=== PATIENT | female | born 1960 | race Caucasian/White ===

== ENCOUNTER 2018-08-29 09:53 | Outpatient (CLI) | payer BC ==
[~2018-08-29] VITALS: Ht 157.5 cm; Wt 66.7 kg
[2018-08-29 10:05] VITALS: BP 135/70
[2018-08-29 10:50] LABS: BASOPHILS % (AUTO) 0 % (0-10); EOSINOPHILS # (AUTO) 0.1 10^3/uL (0.0-0.3); EOSINOPHILS % (AUTO) 2 % (0-10); HEMATOCRIT 43 % (35-52); HEMOGLOBIN 14.9 G/DL (11.5-16.0); LYMPHOCYTES # (AUTO) 1.1 X 10^3 (1.0-4.0); LYMPHOCYTES % (AUTO) 20 % (12-44); MEAN CORPUSCULAR HEMOGLOBIN 31 PG (25-34); MEAN CORPUSCULAR HGB CONC 34 G/DL (32-36); MEAN CORPUSCULAR VOLUME 90 FL (80-99); MONOCYTES # (AUTO) 0.5 X 10^3 (0.0-1.0); MONOCYTES % (AUTO) 8 % (0-12); NEUTROPHILS # (AUTO) 3.8 X 10^3 (1.8-7.8); NEUTROPHILS % (AUTO) 69 % (42-75); PLATELET COUNT 291 10^3/uL (130-400); RED CELL DISTRIBUTION WIDTH 12.3 % (10.0-14.5); WHITE BLOOD COUNT 5.5 10^3/uL (4.3-11.0)
[2018-08-29] MEDS ORDERED: GLUC1CAP37 PO (10:56)
[2018-08-29] MEDS ORDERED: [UNRECOGNIZED DRUG - OTHER] PO (10:56)
[2018-08-29] MEDS ORDERED: MUSCLE RELAX PO (10:56)
[2018-08-29] MEDS ORDERED: PROG100C6 PO (10:56)
[2018-08-29] MEDS ORDERED: CYAN500T2 PO (10:56)
[2018-08-29] MEDS ORDERED: FLUT9.9S NS (10:56)
[2018-08-29] MEDS ORDERED: RT-ALBUINH INH (10:56)
[2018-08-29] MEDS ORDERED: VALE530C PO (10:56)
[2018-08-29] MEDS ORDERED: MONT10TA24 PO (10:56)
[2018-08-29] MEDS ORDERED: FEXO-46 PO (10:56)
[2018-08-29] MEDS ORDERED: CRAN250C2 PO (10:56)
[2018-08-29] MEDS ORDERED: BLACK SEED OIL PO (10:56)
[2018-08-29] MEDS ORDERED: HYAL1CAP PO (10:56)
[2018-08-29] MEDS ORDERED: VITA400C60 PO (10:56)
[2018-08-29] MEDS ORDERED: HAWT150C PO (10:56)
[2018-08-29] MEDS ORDERED: [UNRECOGNIZED DRUG - OTHER] PO (10:56)
[2018-08-29 10:58] LABS: BACTERIA,URINE TRACE /HPF; BILIRUBIN,URINE NEGATIVE (NEGATIVE); CLARITY,URINE CLEAR; COLOR,URINE YELLOW; GLUCOSE, URINE (UA) NEGATIVE (NEGATIVE); KETONES,URINE 2+ (NEGATIVE); LEUKOCYTE ESTERASE ,URINE 3+ (NEGATIVE); NITRITE,URINE NEGATIVE (NEGATIVE); PH,URINE 6 (5-9); PROTEIN,URINE NEGATIVE (NEGATIVE); UROBILINOGEN,URINE NORMAL (NORMAL)
== END 2018-08-29 10:30 | disposition home or self-care (01) ==
LOC: PREOP 09:53
PROVIDERS: ATTEND Obstetrics & Gynecology
DX: Z01.812 Encounter for preprocedural laboratory examination (principal); Z11.2 Encounter for screening for other bacterial diseases; N80.0 Endometriosis of uterus; D25.9 Leiomyoma of uterus, unspecified; R82.90 Unspecified abnormal findings in urine
CPT/HCPCS: 36415; 81000; 85025; 86850; 86900; 86901; 87081; 87088

== ENCOUNTER 2018-09-04 06:15 | Day surgery (SDC) | payer BC ==
[~2018-09-04] VITALS: Ht 157.5 cm; Wt 63.7 kg
[~2018-09-04 06:15] MED LIST: BLACK SEED OIL PO; CRAN250C2 PO; CYAN500T2 PO; FEXO-46 PO; FLUT9.9S NS; GLUC1CAP37 PO; HAWT150C PO; HYAL1CAP PO; MONT10TA24 PO; MUSCLE RELAX PO; PROG100C6 PO; RT-ALBUINH INH; VALE530C PO; VITA400C60 PO; [UNRECOGNIZED DRUG - OTHER] PO; [UNRECOGNIZED DRUG - OTHER] PO
[2018-09-04 06:20] VITALS: BP 129/77
[2018-09-04] MEDS ORDERED: metroNIDAZOLE 500MG/100ML IVPB 100 ML IV ONE (06:30)
[2018-09-04] MEDS ORDERED: ceFAZolin INJECTION 1,000 MG in WATER (STERILE) FOR INJECTION 10 ML IV ONE (06:30)
[2018-09-04] MEDS ORDERED: fentaNYL INJECTION 250 MCG/5 ML AMP ONE (06:55)
[2018-09-04] MEDS ORDERED: MIDAZOLAM 2 MG/2 ML (VERSED) VIAL ONE (06:56)
[2018-09-04] MEDS: LACTATED RINGERS 1,000 ML IV PRN ×2 (07:07→08:20)
--- NOTE | 2018-09-04 07:13 | History & Physical-Surgical ---
HPO-Surgical History of Present Illness Chief Complaint: symptomatic uterine fibroids and adenomyosis Diagnosis/Surgical Indication: UTERINE FIBROIDS Procedure: RaTH, BSO, OIP Date of Surgery: Sep 04, 2018 Weight (Pounds): 140 Weight (Ounces): 6.0 Height (Feet): 5 Height (Inches): 2.00 Allergies and Home Medications Allergies Coded Allergies: No Known Drug Allergies (Unverified , 08/29/18) Home Medications Albuterol Sulfate 1 Puff Puff, 2 PUFF INH Q4H PRN for WHEEZING, (Reported) 1 PUFF = 90 MCG Cranberry Extract 250 Mg Capsule, 250 MG PO HS, (Reported) Cyanocobalamin (Vitamin B-12) 500 Mcg Tablet, 500 MCG PO HS, (Reported) Fexofenadine HCl 180 Mg Tablet, 180 MG PO HS, (Reported) Fluticasone Propionate 9.9 Ml [place].susp, 2 SPRAY NS DAILY, (Reported) Glucosa Pantoja 2Kcl/Chondroitin Pantoja 1 Each Capsule, 1 EACH PO HS, (Reported) [place] 150 Mg Capsule, 150 MG PO DAILY, (Reported) Hyalur AC/Chond Sul/Colg II/Aa 1 Each Capsule, 1 EACH PO HS, (Reported) Montelukast Sodium 10 Mg Tablet, 10 MG PO HS, (Reported) Progesterone,Micronized Unknown Strength Capsule, 150 MG PO HS, (Reported) Valerian Root 450 Mg Capsule, 450 MG PO HS, (Reported) Vitamin E Acetate 400 Unit Capsule, 400 UNIT PO HS, (Reported) [Black Seed Oil] , 500 MG PO HS, (Reported) [Counter Installer's Broom] , 470 MG PO HS, (Reported) [Cramp Bark] , 5,000 MG PO HS, (Reported) [Muscle Relax] , 2,600 MG PO HS, (Reported) Patient Home Medication List Home Medication List Reviewed: Yes Past Agskupp-Deamdc-Amurdz Hx Patient Social History Marrital Status: Number of Children: 0 Alcohol Use: Past History Recreational Drug Use: No Smoking Status: Never a Smoker Recent Foreign Travel: No Contact w/other who traveled: No Recent Infectious Disease Expo: No Immunizations Up To Date Date of Influenza Vaccine: Mar 19, 2018 Seasonal Allergies Seasonal Allergies: Yes Surgeries Yes (UD, sinus sx, DXLS, eye sx x5 for lazy eye) Respiratory Yes Cardiovascular Yes (murmur when younger) Neurological No Genitourinary No Gastrointestinal No Musculoskeletal Yes Arthritis Endocrine History of Endocrine Disorders: No HEENT History of HEENT Disorders: No Cancer No Psychosocial History of Psychiatric Problem: No Integumentary History of Skin or Integumenta: Yes Skin/Integumentary Disorders: Psoriasis Blood Transfusions History of Blood Disorders: No Family Medical History Family Hx: Arthritis 19 FATHER 19 MOTHER Cardiovascular disease 19 FATHER Diabetes mellitus 19 MOTHER G8 SISTER Hypertension 19 FATHER 19 MOTHER G8 BROTHER Thyroid disease 19 MOTHER Exam Vital Signs Vital Signs 09/04/18 06:20 Temp 97.8 Pulse 72 Resp 16 B/P (MAP) 129/77 (94) Pulse Ox 97 O2 Delivery Room Air Capillary Refill : General Appearance: Alert, Oriented X3, Cooperative Respiratory: Clear to Auscultation Cardiovascular: Regular Rate, Normal S1, Normal S2 Abdominal: Normal Bowel Sounds, Other (uterus is enlarged and irregular, mobile , tender) Psych/Mental Status: Mental Status NL Assessment/Plan Assessment and Plan 1. Symptomatic uterine fibroids and adenomyosis (dyspareunia, pain, incomplete bladder emptying) Plan - RaTH, BSO, oip Risks of surgery include bleeding, infection, injury to bowel, bladder and ureter, risk of anesthesia, DVT, etc. Plan surgery on 09/04/18 Consents have been signed. Childbearing has been completed. Prophylactic antibiotics and SCDs will be used. Admission Diagnosis Admission Status: MARIA ISABEL Roblero DO Sep 04, 2018 07:12
[2018-09-04] MEDS ORDERED: BUP/EPI 0.5% 1:200,000 (SENSORCAINE) 30 ML VIAL ONE (07:16)
[2018-09-04] MEDS ORDERED: LIDOCAINE PF 2% 5 ML (XYLOCAINE) VIAL ONE (09:09)
[2018-09-04] MEDS ORDERED: DEXAMETHASONE 10 MG/ML (DECADRON) 1 ML VIAL ONE (09:09)
[2018-09-04] MEDS ORDERED: ROCURONIUM 10 MG/ML 5 ML SYRINGE IV ONE (09:09)
[2018-09-04] MEDS ORDERED: ONDANSETRON 4 MG/2 ML (SDV) Z0FRAN ONE (09:09)
[2018-09-04] MEDS ORDERED: proPOfol 200 MG/20 ML (DIPRIVAN) VIAL IV ONE (09:09)
[2018-09-04] MEDS ORDERED: SEVOFLURANE (ULTANE) 15 ML INHAL SOLN ONE (09:09)
[2018-09-04] MEDS ORDERED: NEOSTIGMINE 1 MG/ML 5 ML SYRINGE ONE (09:12)
[2018-09-04] MEDS ORDERED: GLYCOPYRROLATE 0.2 MG/ML (ROBINUL) 2 ML VIAL ONE (09:12)
[2018-09-04] MEDS ORDERED: KETOROLAC 30 MG/ML VIAL ONE (09:13)
[2018-09-04] MEDS: KETOROLAC 30 MG/ML VIAL IV SCH ×2 (09:15→16:10)
--- NOTE | 2018-09-04 09:23 | Operative Report ---
Operative Report Date of Procedure/Surgery Sep 04, 2018 Surgeon (s) MARIA ISABEL REN DO Sales Process Manager (s): Angi sánchez APRN Post-Operative Diagnosis Uterine fibroids Procedure Performed [facility] Description of Procedure Anesthesia Type: General Estimated blood loss (mL): 150 Specimen(s) collected/removed uterus bilateral tubes and ovaries Description of the Procedure After informed consent was obtained, patient was taken into the operating room where general anesthetic was found to be adequate. She was prepped and draped in the usual sterile fashion in the dorsal lithotomy position. A Garcia catheter was placed. A speculum was placed in the vagina. The anterior lip was grasped with a sharp toothed tenaculum. The uterus was sounded and depth was approximately 12 centimeters. I placed the Anni device. And then set the Anni to 10 cm and a 3.5 cm collar was advanced over the cervix. I inserted the Anni without difficulty, inflating the balloon and securing it around the fornix of the cervix. The collar was then secured with sutures at 12 o'clock. Attention was then turned to the patient's abdomen. A supraumbilical incision was made about 8 mm. A Veress needle was inserted and I had difficulty confirming intraabdominal placement, but was eventually able to confirm with a drop in pressure and the saline drop test. I then insufflated the abdomen to a maximum of 15 mmHg with warmed CO2 gas. I then placed an 8 mm trocar and then the Da Kristian camera and intraperitoneal placement was confirmed. I then determined the procedure could be continued robotically. The first robotic port was placed about 15 cm lateral to the right and left of the umbilical placement and slightly inferior. These are both 8 mm trocars. These were placed under direct visualization of the laparoscope. 0.25% Marcaine was injected prior to placement of all trocars. When all placements were confirmed, the patient was placed in steep Trendelenburg allowing adequate visualization and the robot was brought in for docking. The docking was accomplished without difficulty. A survey of the pelvis confirmed the above mentioned findings. There were adhesions in the right lower quadrant from previous appendectomy. I took down the ones overlying the infundibulopelvic ligament in a blunt and sharp fashion. In addition, there was a fibroid pedunculated off the posterior uterus. This was obscuring view. I grasped this and then excised this off the uterus and left this in the culdesac to be removed later I was able to visualize the round ligaments bilaterally and grasped them and cauterized with bipolar cautery and then cut with my saritha. Next, I took down the ovaries from the ovarian fossae bilaterally in a blunt and sharp fashion. I then moved to the infundibulopelvic ligaments bilaterally. I clamped and then sealed the vessel and transected bilaterally using the bipolar cautery and then cut with the monopolar saritha. I then moved my dissection to the posterior leaves of the broad ligament. I dissected the posterior leaves of the broad ligament off the uterine arteries skeletonizing them bilaterally. I then took a second clamp with the bipolar cautery and with the saritha, transected the vessels away from the lateral aspect to the cervical stroma. I dissected the anterior peritoneum off the lower uterine segment. I continually pushed the bladder back and I took excessively great care and I was eventually able to dissect the vesicouterine peritoneum off the lower uterine segment. I then dissected in a V fashion towards the midline between the uterosacral ligaments. This allowed me to skeletonize the uterine vessels bilaterally. The balloon on the ANNI was insufflated. This allowed me to see the ANNI circumferentially. I then performed a colpotomy anteriorly and then amputate with cervix away from the vaginal fornix. I then continued the colpotomy circumferentially. Once this was performed, the welder assistant removed the uterus through the vagina. The fibroid was removed as well. A sponge was left in the vagina to maintain pneumoperitoneum. I then began closure of the vaginal cuff. The uterus was left in the vagina to maintain pneumoperitoneum. I closed the apices of the vaginal cuff with 2-0 Vicryl V lock sutures with a colposuspension through the uterosacral ligaments. This suspended the apices of the vaginal cuff. I extended this to the midline from both sides and overlapped the V lock sutures in the midline. Excellent closure is noted and hemostasis is achieved. All the needles were removed from the patient's abdomen. The trocar sites were now closed. The large trocar facial incision was repaired with 0 Vicryl and the skin with 4-0 Monocryl and then bandages were placed. the patient was awakened and taken to the recovery room in a stable condition. Sponge, lap, needle and instrument counts were correct times two. Findings of the Procedure multiple fibroids, pedunculated fibroid ovaries scarred to the ovarian fossae bilaterally, scarring along the left US ligament. Scarring CW appendectomy Allergies and Home Medications Allergies Coded Allergies: No Known Drug Allergies (Unverified , 08/29/18) Home Medications Acetaminophen 500 Mg Tablet, 1,000 MG PO Q8H Prescribed by: MARIA ISABEL REN on 09/04/18 1330 Albuterol Sulfate 1 Puff Puff, 2 PUFF INH Q4H PRN for WHEEZING, (Reported) 1 PUFF = 90 MCG Cranberry Extract 250 Mg Capsule, 250 MG PO HS, (Reported) Cyanocobalamin (Vitamin B-12) 500 Mcg Tablet, 500 MCG PO HS, (Reported) Docusate Sodium 100 Mg Capsule, 100 MG PO BID PRN for CONSTIPATION-1ST LINE Prescribed by: MARIA ISABEL REN on 09/04/18 133 Fexofenadine HCl 180 Mg Tablet, 180 MG PO HS, (Reported) Fluticasone Propionate 9.9 Ml [place].susp, 2 SPRAY NS DAILY, (Reported) Glucosa Pantoja 2Kcl/Chondroitin Pantoja 1 Each Capsule, 1 EACH PO HS, (Reported) [place] 150 Mg Capsule, 150 MG PO DAILY, (Reported) Hyalur AC/Chond Sul/Colg II/Aa 1 Each Capsule, 1 EACH PO HS, (Reported) Ibuprofen 600 Mg Tablet, 600 MG PO Q6H Prescribed by: MARIA ISABEL REN on 09/04/18 1330 Montelukast Sodium 10 Mg Tablet, 10 MG PO HS, (Reported) Progesterone,Micronized Unknown Strength Capsule, 150 MG PO HS, (Reported) Simethicone 80 Mg Tab.chew, 40 MG PO TID PRN for INDIGESTION Prescribed by: MARIA ISABEL REN on 09/04/18 1330 Valerian Root 450 Mg Capsule, 450 MG PO HS, (Reported) Vitamin E Acetate 400 Unit Capsule, 400 UNIT PO HS, (Reported) [Black Seed Oil] , 500 MG PO HS, (Reported) [[place] Tanner's Broom] , 470 MG PO HS, (Reported) [Cramp Bark] , 5,000 MG PO HS, (Reported) [Muscle Relax] , 2,600 MG PO HS, (Reported) [Oxycodone Hcl] 5 MG TAB, 5 MG PO Q4H PRN for PAIN-SEVERE Prescribed by: MARIA ISABEL REN on 09/04/18 3382 Patient Home Medication List Home Medication List Reviewed: Yes MARIA ISABEL REN DO Sep 04, 2018 09:22
[2018-09-04] MEDS ORDERED: DOCUSATE SODIUM 100 MG (COLACE) CAP PO PRN (09:30)
[2018-09-04] MEDS ORDERED: ONDANSETRON 4 MG/2 ML (SDV) Z0FRAN IV PRN (09:30)
[2018-09-04] MEDS ORDERED: HYDROmorphone 2 MG/ML VIAL (DILAUDID) IV PRN (09:30)
[2018-09-04] MEDS ORDERED: ANTACID SUSP 30 ML UDC (MYLANTA) PO PRN (09:30)
[2018-09-04] MEDS ORDERED: SIMETHICONE 80 MG (MYLICON) CHEW PO PRN (09:30)
[2018-09-04] MEDS ORDERED: ACETAMINOPHEN 500 MG TAB (TYLENOL) PO SCH (09:30)
[2018-09-04] MEDS ORDERED: MEPERIDINE (DEMEROL) INJ 50 MG/ML IVP ONE (09:45)
[2018-09-04] MEDS ORDERED: ONDANSETRON 4 MG/2 ML (SDV) Z0FRAN IVP PRN (09:45)
[2018-09-04] MEDS ORDERED: fentaNYL INJECTION 100 MCG/2 ML AMP IVP ONE (09:45)
[2018-09-04] MEDS ORDERED: morphine INJ 10 MG/ML 1ML (SYR OR VIAL) IVP ONE (09:45)
[2018-09-04] MEDS ORDERED: morphine INJ 10 MG/ML 1ML (SYR OR VIAL) ONE (09:57)
--- NOTE | 2018-09-04 10:35 | NUR ---
MULU WINSLOW presented to unit via BED from RECOVERY, accompanied by Darrel FLORES, HAZARDOUS WASTE MATERIAL TECHNICIAN FOLLOWING SURGERY. REPORT RECEIVED. VIVI TO D/D. SCDS ON CALVES BILATERALLY. MULU WINSLOW oriented to bed controls, call light, TV, heat, and A/C controls.
[2018-09-04 10:42] VITALS: BP 110/60
[2018-09-04] MEDS ORDERED: D5 LR IV SOLUTION 0 ML IV ONE (10:52)
[2018-09-04] MEDS: LACTATED RINGERS 1,000 ML IV SCH ×2 (11:06→14:03)
[2018-09-04 12:50] VITALS: BP 97/61
--- NOTE | 2018-09-04 12:50 | NUR ---
PT RESTING. VS OBTAINED, DENIES ANY PAIN AT THIS TIME. MENU PROVIDED AND TEACHING DONE RE: ROOM SERVICE. PT PREPPING TO ORDER FOOD. S/O AT THE BEDSIDE.
--- NOTE | 2018-09-04 13:14 | NUR ---
ROOM SERVICE DELIVERED TO PT. THIS RN TO BEDSIDE TO DC TRINIDAD, ONLY 30 ML OF URINE OUTPUT NOTED. TR[place] LEFT IN PLACE. FLUIDS INCREASED TO 999 ML/HR/PUMP. DR NOTIFIED. PT POSITIONED TO EAT.
[2018-09-04] MEDS ORDERED: Oxycodone Hcl PO (13:30)
[2018-09-04] MEDS ORDERED: SIME80TA16 PO (13:30)
[2018-09-04] MEDS ORDERED: DOCU100C37 PO (13:30)
[2018-09-04] MEDS ORDERED: IBUP-844 PO (13:30)
[2018-09-04] MEDS ORDERED: ACET-77 PO (13:30)
--- NOTE | 2018-09-04 13:34 | Discharge Inst-Women's Service ---
Discharge Inst-Women's Serv Depart Medication/Instructions New, Converted or Re-Newed RX: RX on Chart Instructions nothing in the vagina until cleared (10-12 weeks) no driving for 1 week no lifting over 25 lbs Final Diagnosis uterine fibroids adenomyosis Consults/Follow Up Additional Follow Up: Yes (1 week with Angi, 10-12 weeks with Jose L) Activity Activity: Activity as Tolerated Driving Instructions: No Driving for 1 Week NO SMOKING: NO SMOKING Nothing Inside Vagina: No Douching, No [place], No Tampons Diet Discharge Diet: No Restrictions Symptoms to Report to : Bleeding Excessive, Pain Increased, Fever Over 101 Degrees F, Vaginal Bleeding Increase, Cramps in Feet or Legs, Vaginal Discharge Foul For Any Problems or Questions: Contact Your Physician Skin/Wound Care Infection Signs and Symptoms: Increased Redness, Foul Odor of Wound, Increased Drainage, Skin Itchy or Has a Rash, Increased Swelling, Temperature Above 101 F Operative Area Clean and Dry: You May Remove Bandage (May removed bandage after 3 days unless soiled or wet, then replace) Stitches/Tien/Dermabond: Dermabond Bathing Instructions: MARIA ISABEL Rizzo DO Sep 04, 2018 13:34
--- NOTE | 2018-09-04 13:35 | NUR ---
RT NOTIFIED OF THE NEED FOR INCENTIVE SPIROMETRY INITIATED.
--- NOTE | 2018-09-04 14:05 | NUR ---
DR. REN ON THE UNIT, PLAN TO DISCHARGE LATER THIS EVENING.
[2018-09-04] MEDS ORDERED: FUROSEMIDE 40 MG/4 ML INJ (LASIX) ONE (14:06)
[2018-09-04] MEDS ORDERED: FUROSEMIDE 40 MG/4 ML INJ (LASIX) IVP ONE (14:15)
--- NOTE | 2018-09-04 14:43 | NUR ---
TOTAL OF 475 ML OF URINE OUTPUT NOTED. VIVI THOMAS'Benigno. + PERICARE. NEW PAD AND PANTIES IN PLACE. PT DENIES WANTING TO GET UP TO THE CHAIR, WOULD LIKE TO STAY IN BED SHE DIDN'T SLEEP WELL LAST NIGHT. PT ENCOURAGED TO CALL FOR ASSISTANCE WHEN NEEDING TO GET UP TO THE BATHROOM. PT VERBALIZES UNDERSTANDING. CALL LIGHT WITHIN REACH.
--- NOTE | 2018-09-04 15:00 | NUR ---
+ VOID, + PERICARE PER PT. PT UP TO THE CHAIR.
--- NOTE | 2018-09-04 16:28 | NUR ---
DISCHARGE PAPERS PROVIDED AND REVIEWED WITH PT, PT VERBALIZES UNDERSTANDING AND DENIES ANY QUESTIONS AT THIS TIME. RX'S ALSO PROVIDED AT THIS TIME. PAPER SIGNED.
--- NOTE | 2018-09-04 16:40 | NUR ---
DISMISSED AMB FROM [facility] IN STABLE CONDITION TO [facility] BY SPOUSE AND BISHOP ROPER.
--- NOTE | 2018-09-05 06:31 | Anesthesia-General Post-Op ---
General Patient Condition Mental Status/LOC: Same as Preop Cardiovascular: Satisfactory Nausea/Vomiting: Absent Respiratory: Satisfactory Pain: Controlled Complications: Absent Post Op Complications Complications None Follow Up Care/Instructions Patient Instructions None needed. Anesthesia/Patient Condition Patient Condition Patient is doing well, no complaints, stable vital signs, no apparent adverse anesthesia problems. No complications reported per nursing. D/C home per [facility] Criteria: Yes GITA JACKSON CRNA Sep 05, 2018 06:31
[2018-09-05] MEDS ORDERED: IBUPROFEN 600 MG (MOTRIN) TAB PO SCH (09:30)
== END 2018-09-04 16:40 | disposition home or self-care (01) ==
LOC: SDC 06:15 → WS 10:35 → SDC 16:40
PROVIDERS: ATTEND Obstetrics & Gynecology
DX: N80.0 Endometriosis of uterus (principal); D25.0 Submucous leiomyoma of uterus; D25.1 Intramural leiomyoma of uterus; D25.2 Subserosal leiomyoma of uterus; N84.0 Polyp of corpus uteri; N87.0 Mild cervical dysplasia; N94.10 Unspecified dyspareunia; J45.909 Unspecified asthma, uncomplicated; Z79.899 Other long term (current) drug therapy
CPT/HCPCS: 36415; 86850; 86900; 86901; 88307